=== PATIENT | male | born 1985 | race African-American/Black ===

== ENCOUNTER 2018-07-16 19:04 | Emergency (ER) | payer OTHER, MEDICARE ==
[~2018-07-16] VITALS: Ht 170.2 cm; Wt 56.9 kg
[~2018-07-16 19:04] MED LIST: DIVA500T1 PO; ZOLP10TA1 PO; [UNRECOGNIZED DRUG - CODE] PO
[2018-07-16 19:10] VITALS: BP 132/75
[2018-07-16 20:16] VITALS: BP 130/73
== END 2018-07-16 20:16 | disposition home or self-care (01) ==
LOC: MED 19:04
DX: Z76.0 Encounter for issue of repeat prescription (principal); F20.9 Schizophrenia, unspecified; Z79.899 Other long term (current) drug therapy
CPT/HCPCS: 99283